=== PATIENT | female | born 1945 | race African-American/Black ===

== ENCOUNTER 2022-01-16 12:25 | Inpatient (IN) | payer OTHER ==
[~2022-01-16] VITALS: Ht 170.2 cm; Wt 64.4 kg
[2022-01-16] MEDS ORDERED: SODIUM CHLORIDE 0.9% 1,000 ML IV ONE (13:15)
[2022-01-16] MEDS ORDERED: KETOROLAC 15MG/ML VIAL IV NR (15:15)
[2022-01-16 16:07] LABS: BASOPHILS % 0.5 % (0.0-2.0); EOSINOPHILS % 0.2 % (0.0-5.0); HEMATOCRIT. 28.5 % (36.0-48.0); HEMOGLOBIN. 9.6 g/dL (12.0-16.0); MEAN CORPUSCULAR HEMOGLOBIN 30.5 pg (28.0-32.0); MEAN CORPUSCULAR VOLUME 90.4 fL (81.0-99.0); MEAN PLATELET VOLUME 11.4 fl (7.4-10.4); MONOCYTES % 6.2 % (2.0-8.0); NEUTROPHILS % 76.1 % (40.0-76.0); PLATELET 246 x1000/uL (130-400); RED BLOOD CELL COUNT 3.16 mill/uL (4.2-5.4); RED CELL DISTRIBUTION WIDTH 17.6 % (11.6-14.6)
[2022-01-16 16:21] LABS: CHLORIDE 100 mEq/L (98-107); CREATINE KINASE 52 IU/L (26-192)
[2022-01-17] MEDS ORDERED: ONDANSETRON HCL 4MG/2ML INJ IV PRN (06:00)
[2022-01-17] MEDS: DEXT 5%/0.45% NACL 1000ML 1,000 ML IV SCH ×2 (06:00→19:20)
[2022-01-17] MEDS ORDERED: MAGNESIUM/ALUMINUM HYDROXIDE/SIMETHICONE 30ML UDC PO PRN (06:00)
[2022-01-17] MEDS ORDERED: GUAIFENESIN 200MG/10ML SUGAR FREE UDC PO PRN (06:00)
[2022-01-17] MEDS ORDERED: DOCUSATE SODIUM 100MG CAPSULE PO PRN (06:00)
[2022-01-17 09:52] VITALS: BP 115/62
[2022-01-17] MEDS: AMLODIPINE 10MG TABLET PO SCH (10:32)
[2022-01-17] MEDS: ENOXAPARIN 30MG/0.3ML SYR SUBCUT SCH (10:33)
[2022-01-17] MEDS ORDERED: MECL-159 PO (12:06)
[2022-01-17] MEDS ORDERED: AMIT100T2 PO (12:24)
[2022-01-17] MEDS ORDERED: ATOR40TA70 PO (12:25)
[2022-01-17] MEDS ORDERED: ALLO100T PO (12:25)
[2022-01-17] MEDS ORDERED: METF-416 PO (12:27)
[2022-01-17] MEDS ORDERED: FURO20TA4 PO (12:28)
[2022-01-17] MEDS ORDERED: AMLO5TAB88 PO (12:29)
[2022-01-17] MEDS: TRAMADOL 50MG TABLET PO PRN (15:55)
[2022-01-17] MEDS ORDERED: METFORMIN HCL 500MG TABLET PO SCH (18:15)
[2022-01-18] VITALS: BP 138/78
[2022-01-18 04:00] VITALS: BP 135/78
[2022-01-18] MEDS ORDERED: BUPIVACAINE HCL/PF 0.5% (5MG/ML) 30ML ONE (06:51)
[2022-01-18] MEDS ORDERED: VANCOMYCIN HCL 1 GM/VIAL ONE (06:51)
[2022-01-18] MEDS ORDERED: LIDOCAINE HCL 1% 20ML VIAL (Pyxis) INJ ONE (06:51)
[2022-01-18] MEDS ORDERED: BUPIVACAINE HCL/PF 0.5% (5MG/ML) 10ML ONE (06:52)
[2022-01-18] MEDS ORDERED: POLYMYXIN B SULFATE 500000 UNITS/VIAL ONE (06:59)
[2022-01-18 07:23] LABS: BASOPHILS % 0.4 % (0.0-2.0); EOSINOPHILS % 2.7 % (0.0-5.0); HEMATOCRIT. 25.2 % (36.0-48.0); HEMOGLOBIN. 8.4 g/dL (12.0-16.0); LYMPHOCYTES % 29.4 % (20.0-50.0); MEAN CORPUSCULAR HEMOGLOBIN 30.5 pg (28.0-32.0); MEAN CORPUSCULAR VOLUME 91.3 fL (81.0-99.0); MEAN PLATELET VOLUME 11.1 fl (7.4-10.4); MONOCYTES % 8.8 % (2.0-8.0); NEUTROPHILS % 58.7 % (40.0-76.0); PLATELET 206 x1000/uL (130-400); RED BLOOD CELL COUNT 2.76 mill/uL (4.2-5.4)
[2022-01-18] MEDS ORDERED: SUCCINYLCHOLINE CHLORIDE 200MG/10ML IV ONE (07:32)
[2022-01-18] MEDS ORDERED: ROCURONIUM BROMIDE 10MG/ML VIAL 5ML IV ONE (07:32)
[2022-01-18] MEDS ORDERED: ETOMIDATE 2MG/ML 10ML VIAL IV ONE (07:32)
[2022-01-18] MEDS ORDERED: MIDAZOLAM HCL 2 MG/2 ML VIAL ONE ×2 (07:33→07:34)
[2022-01-18] MEDS ORDERED: FENTANYL CITRATE/PF 50MCG/ML 2ML VIAL ONE (07:33)
[2022-01-18] MEDS ORDERED: LABETALOL 5MG/ML SYR 20 MG/4 ML SYRINGE IV PRN (08:00)
[2022-01-18] MEDS ORDERED: HYDROMORPHONE HCL/PF 2MG/ML CPJ IV PRN (08:00)
[2022-01-18] MEDS ORDERED: MEPERIDINE HCL/PF 25MG/ML CPJ IV PRN (08:00)
[2022-01-18] MEDS ORDERED: ONDANSETRON HCL 4MG/2ML INJ IV PRN (08:00)
[2022-01-18] MEDS ORDERED: NEOSTIGMINE METHYLSULFATE 1MG/ML 10 ML VIAL ONE (08:19)
[2022-01-18] MEDS ORDERED: GLYCOPYRROLATE 0.2 MG/ML 2ML VIAL ONE ×3 (08:20→08:33)
[2022-01-18] MEDS: CEFAZOLIN 1000MG PREMIX 50 ML IV SCH ×2 (08:30→20:04)
[2022-01-18] MEDS: ENOXAPARIN 30MG/0.3ML SYR SUBCUT SCH (09:00)
[2022-01-18] MEDS: AMLODIPINE 10MG TABLET PO SCH (09:00)
[2022-01-18 09:14] LABS: CHLORIDE 103 mEq/L (98-107); HDL CHOLESTEROL 58 mg/dL (40-59); LDL CHOLESTEROL 27 mg/dL (5-100)
[2022-01-18] MEDS ORDERED: POTASSIUM CHLORIDE 20MEQ TABLET SR PO NR (10:30)
[2022-01-18] MEDS: DEXT 5%/0.45% NACL 1000ML 1,000 ML IV SCH ×2 (10:40→22:05)
[2022-01-18 12:00] VITALS: BP 111/68
[2022-01-18] MEDS ORDERED: DEXTROSE 50% WATER 50ML SYRINGE IV PRN (13:30)
[2022-01-18] MEDS: INSULIN LISPRO 100 UNITS/ML SUBCUT SCH ×3 (14:19→20:18)
[2022-01-18 16:00] VITALS: BP 91/61
[2022-01-18] MEDS: TRAMADOL 50MG TABLET PO PRN (16:41)
[2022-01-18] MEDS: BLOOD SUGAR DIAGNOSTIC STRIP TEST SCH ×2 (17:20→20:03)
[2022-01-18] MEDS ORDERED: NALOXONE HCL 0.4MG/ML VIAL IV PRN (18:30)
[2022-01-18 20:00] VITALS: BP 123/75
[2022-01-19] VITALS (11 sets, daily range): BP systolic 96–138; BP diastolic 54–88
[2022-01-19 06:30] LABS: BASOPHILS % 0.4 % (0.0-2.0); EOSINOPHILS % 0.7 % (0.0-5.0); LYMPHOCYTES % 22.8 % (20.0-50.0); MEAN CORPUSCULAR HEMOGLOBIN 30.9 pg (28.0-32.0); MEAN CORPUSCULAR VOLUME 91.4 fL (81.0-99.0); MEAN PLATELET VOLUME 10.9 fl (7.4-10.4); MONOCYTES % 8.2 % (2.0-8.0); NEUTROPHILS % 67.9 % (40.0-76.0); PLATELET 182 x1000/uL (130-400); RED BLOOD CELL COUNT 2.19 mill/uL (4.2-5.4); RED CELL DISTRIBUTION WIDTH 17.8 % (11.6-14.6)
[2022-01-19 06:50] LABS: HEMOGLOBIN. 6.7 g/dL (12.0-16.0)
[2022-01-19] MEDS: TRAMADOL 50MG TABLET PO PRN ×2 (06:58→13:31)
[2022-01-19 07:03] LABS: CHLORIDE 103 mEq/L (98-107)
[2022-01-19] MEDS: BLOOD SUGAR DIAGNOSTIC STRIP TEST SCH ×5 (07:20→21:36)
[2022-01-19] MEDS: ENOXAPARIN 30MG/0.3ML SYR SUBCUT SCH (09:00)
[2022-01-19] MEDS: CEFAZOLIN 1000MG PREMIX 50 ML IV SCH ×2 (09:14→23:37)
[2022-01-19] MEDS: AMLODIPINE 10MG TABLET PO SCH (09:14)
[2022-01-19] MEDS: INSULIN LISPRO 100 UNITS/ML SUBCUT SCH ×3 (09:25→13:26)
[2022-01-19] MEDS: DEXT 5%/0.45% NACL 1000ML 1,000 ML IV SCH ×2 (11:20→23:37)
[2022-01-19] MEDS ORDERED: MECLIZINE 25MG TABLET PO PRN (14:45)
[2022-01-19] MEDS ORDERED: MAGNESIUM 2 G PREMIX 50 ML IV NR (17:00)
[2022-01-19] MEDS: METFORMIN HCL 500MG TABLET PO SCH (17:50)
[2022-01-19] MEDS: AMITRIPTYLINE 25MG TABLET PO SCH (21:36)
[2022-01-19] MEDS: ATORVASTATIN CALCIUM 40MG TABLET PO SCH (21:36)
[2022-01-20 02:13] VITALS: BP 108/75
[2022-01-20 02:28] VITALS: BP 110/68
[2022-01-20 03:28] VITALS: BP 112/61
[2022-01-20 04:00] VITALS: BP 115/62
[2022-01-20 04:10] VITALS: BP 115/62
[2022-01-20] MEDS: BLOOD SUGAR DIAGNOSTIC STRIP TEST SCH ×4 (06:33→20:37)
[2022-01-20] MEDS: ALLOPURINOL 100 MG TABLET PO SCH (11:24)
[2022-01-20] MEDS: CEFAZOLIN 1000MG PREMIX 50 ML IV SCH (11:24)
[2022-01-20] MEDS: METFORMIN HCL 500MG TABLET PO SCH ×2 (11:24→17:39)
[2022-01-20] MEDS: AMLODIPINE 5MG TABLET PO SCH (11:25)
[2022-01-20] MEDS: FUROSEMIDE 20MG TABLET PO SCH (11:25)
[2022-01-20 13:16] LABS: BASOPHILS % 0.2 % (0.0-2.0); EOSINOPHILS % 1.1 % (0.0-5.0); HEMATOCRIT. 26.1 % (36.0-48.0); HEMOGLOBIN. 8.9 g/dL (12.0-16.0); LYMPHOCYTES % 12.3 % (20.0-50.0); MEAN CORPUSCULAR HEMOGLOBIN 30.3 pg (28.0-32.0); MEAN CORPUSCULAR VOLUME 89.1 fL (81.0-99.0); MEAN PLATELET VOLUME 11.3 fl (7.4-10.4); MONOCYTES % 5.7 % (2.0-8.0); NEUTROPHILS % 80.7 % (40.0-76.0); PLATELET 189 x1000/uL (130-400); RED BLOOD CELL COUNT 2.93 mill/uL (4.2-5.4); RED CELL DISTRIBUTION WIDTH 16.1 % (11.6-14.6)
[2022-01-20] MEDS: TRAMADOL 50MG TABLET PO PRN (15:48)
[2022-01-20 16:06] LABS: CHLORIDE 100 mEq/L (98-107)
[2022-01-20] MEDS: DEXT 5%/0.45% NACL 1000ML 1,000 ML IV SCH (17:39)
[2022-01-20 20:00] VITALS: BP 122/67
[2022-01-20] MEDS: AMITRIPTYLINE 25MG TABLET PO SCH (20:39)
[2022-01-20] MEDS: ATORVASTATIN CALCIUM 40MG TABLET PO SCH (20:39)
[2022-01-20] MEDS ORDERED: DEXTROSE 50% WATER 50ML SYRINGE IV PRN (23:30)
[2022-01-21] VITALS: BP 125/62
[2022-01-21] MEDS: DEXT 5%/0.45% NACL 1000ML 1,000 ML IV SCH (03:20)
[2022-01-21] MEDS: BLOOD SUGAR DIAGNOSTIC STRIP TEST SCH ×5 (07:20→23:47)
[2022-01-21] MEDS: INSULIN LISPRO 100 UNITS/ML SUBCUT SCH ×4 (07:50→20:34)
[2022-01-21] MEDS: ALLOPURINOL 100 MG TABLET PO SCH (08:35)
[2022-01-21] MEDS: METFORMIN HCL 500MG TABLET PO SCH ×2 (08:35→18:31)
[2022-01-21] MEDS: FUROSEMIDE 20MG TABLET PO SCH (08:35)
[2022-01-21] MEDS: AMLODIPINE 5MG TABLET PO SCH (08:36)
[2022-01-21] MEDS ORDERED: POTASSIUM CHLORIDE 20MEQ TABLET SR PO NR (11:00)
[2022-01-21] MEDS: TRAMADOL 50MG TABLET PO PRN (11:48)
[2022-01-21 12:14] VITALS: BP 121/65
[2022-01-21 16:03] VITALS: BP 129/71
[2022-01-21 20:00] VITALS: BP 122/59
[2022-01-21] MEDS: AMITRIPTYLINE 25MG TABLET PO SCH (20:34)
[2022-01-21] MEDS: ATORVASTATIN CALCIUM 40MG TABLET PO SCH (20:34)
[2022-01-22] VITALS: BP 120/63
[2022-01-22 04:00] VITALS: BP 123/71
[2022-01-22] MEDS: INSULIN LISPRO 100 UNITS/ML SUBCUT SCH ×4 (07:50→19:59)
[2022-01-22 08:00] VITALS: BP 126/64
[2022-01-22] MEDS: ALLOPURINOL 100 MG TABLET PO SCH (09:51)
[2022-01-22] MEDS: FUROSEMIDE 20MG TABLET PO SCH (09:51)
[2022-01-22] MEDS: AMLODIPINE 5MG TABLET PO SCH (09:51)
[2022-01-22] MEDS: METFORMIN HCL 500MG TABLET PO SCH ×2 (09:51→17:56)
[2022-01-22 12:00] VITALS: BP 126/69
[2022-01-22] MEDS: BLOOD SUGAR DIAGNOSTIC STRIP TEST SCH ×3 (13:09→19:59)
[2022-01-22 16:00] VITALS: BP 124/66
[2022-01-22] MEDS: AMITRIPTYLINE 25MG TABLET PO SCH (19:59)
[2022-01-22] MEDS: ATORVASTATIN CALCIUM 40MG TABLET PO SCH (19:59)
[2022-01-22 20:00] VITALS: BP 134/74
[2022-01-23] VITALS: BP 117/74
[2022-01-23] MEDS: BLOOD SUGAR DIAGNOSTIC STRIP TEST SCH ×4 (03:42→21:00)
[2022-01-23 04:00] VITALS: BP 142/80
[2022-01-23 07:10] LABS: HEMATOCRIT 25.2 % (36.0-48.0); HEMOGLOBIN 8.5 g/dL (12.0-16.0); MEAN CORPUSCULAR HEMOGLOBIN 30.2 pg (28.0-32.0); MEAN CORPUSCULAR VOLUME 89.3 fL (81.0-99.0); PLATELET 232 x1000/uL (130-400); RED BLOOD CELL COUNT 2.83 mill/uL (4.2-5.4); RED CELL DISTRIBUTION WIDTH 16.4 % (11.6-14.6)
[2022-01-23 08:00] VITALS: BP 141/81
[2022-01-23] MEDS: ALLOPURINOL 100 MG TABLET PO SCH (08:37)
[2022-01-23] MEDS: AMLODIPINE 5MG TABLET PO SCH (08:37)
[2022-01-23] MEDS: FUROSEMIDE 20MG TABLET PO SCH (08:37)
[2022-01-23] MEDS: METFORMIN HCL 500MG TABLET PO SCH ×2 (08:37→18:28)
[2022-01-23] MEDS: INSULIN LISPRO 100 UNITS/ML SUBCUT SCH ×4 (08:54→22:58)
[2022-01-23 12:00] VITALS: BP 137/61
[2022-01-23] MEDS: POTASSIUM CHLORIDE 20MEQ TABLET SR PO SCH (14:15)
[2022-01-23 16:00] VITALS: BP 121/42
[2022-01-23 20:00] VITALS: BP 127/70
[2022-01-23] MEDS: AMITRIPTYLINE 25MG TABLET PO SCH (22:55)
[2022-01-23] MEDS: ATORVASTATIN CALCIUM 40MG TABLET PO SCH (22:56)
[2022-01-24] VITALS: BP 119/68
[2022-01-24 04:00] VITALS: BP 127/70
[2022-01-24] MEDS: INSULIN LISPRO 100 UNITS/ML SUBCUT SCH ×4 (07:50→21:00)
[2022-01-24] MEDS: BLOOD SUGAR DIAGNOSTIC STRIP TEST SCH ×4 (07:51→21:08)
[2022-01-24 08:00] VITALS: BP 148/76
[2022-01-24] MEDS: AMLODIPINE 5MG TABLET PO SCH (08:45)
[2022-01-24] MEDS: METFORMIN HCL 500MG TABLET PO SCH ×2 (08:45→18:24)
[2022-01-24] MEDS: POTASSIUM CHLORIDE 20MEQ TABLET SR PO SCH (08:45)
[2022-01-24] MEDS: ALLOPURINOL 100 MG TABLET PO SCH (08:45)
[2022-01-24] MEDS: FUROSEMIDE 20MG TABLET PO SCH (08:46)
[2022-01-24] MEDS: ACETAMINOPHEN 325MG TABLET PO PRN (11:21)
[2022-01-24 12:00] VITALS: BP 132/69
[2022-01-24] MEDS: TRAMADOL 50MG TABLET PO PRN (14:38)
[2022-01-24 16:00] VITALS: BP 121/71
[2022-01-24 20:00] VITALS: BP 133/75
[2022-01-24] MEDS: AMITRIPTYLINE 25MG TABLET PO SCH (21:22)
[2022-01-24] MEDS: ATORVASTATIN CALCIUM 40MG TABLET PO SCH (21:22)
[2022-01-25] VITALS: BP 132/72
[2022-01-25 04:00] VITALS: BP 143/75
[2022-01-25] MEDS: BLOOD SUGAR DIAGNOSTIC STRIP TEST SCH ×4 (06:22→20:47)
[2022-01-25] MEDS: INSULIN LISPRO 100 UNITS/ML SUBCUT SCH ×4 (07:50→20:48)
[2022-01-25 08:00] VITALS: BP 146/81
[2022-01-25] MEDS: AMLODIPINE 5MG TABLET PO SCH ×2 (10:05→10:06)
[2022-01-25] MEDS: POTASSIUM CHLORIDE 20MEQ TABLET SR PO SCH (10:05)
[2022-01-25] MEDS: ALLOPURINOL 100 MG TABLET PO SCH (10:05)
[2022-01-25] MEDS: FUROSEMIDE 20MG TABLET PO SCH (10:06)
[2022-01-25] MEDS: METFORMIN HCL 500MG TABLET PO SCH ×2 (10:06→19:42)
[2022-01-25 12:00] VITALS: BP 144/80
[2022-01-25 16:00] VITALS: BP 153/80
[2022-01-25 20:00] VITALS: BP 149/83
[2022-01-25] MEDS: AMITRIPTYLINE 25MG TABLET PO SCH (20:42)
[2022-01-25] MEDS: ATORVASTATIN CALCIUM 40MG TABLET PO SCH (20:42)
[2022-01-26] VITALS: BP 137/79
[2022-01-26 04:00] VITALS: BP 113/77
[2022-01-26] MEDS: BLOOD SUGAR DIAGNOSTIC STRIP TEST SCH ×4 (07:20→20:26)
[2022-01-26] MEDS: INSULIN LISPRO 100 UNITS/ML SUBCUT SCH ×4 (07:50→20:26)
[2022-01-26 08:00] VITALS: BP 128/80
[2022-01-26] MEDS: FUROSEMIDE 20MG TABLET PO SCH (09:09)
[2022-01-26] MEDS: METFORMIN HCL 500MG TABLET PO SCH ×2 (09:09→17:20)
[2022-01-26] MEDS: ALLOPURINOL 100 MG TABLET PO SCH (09:09)
[2022-01-26] MEDS: POTASSIUM CHLORIDE 20MEQ TABLET SR PO SCH (09:09)
[2022-01-26] MEDS: TRAMADOL 50MG TABLET PO PRN ×2 (11:15→20:25)
[2022-01-26 12:00] VITALS: BP 134/75
[2022-01-26 16:00] VITALS: BP 117/63
[2022-01-26 20:16] VITALS: BP 111/63
[2022-01-26] MEDS: ATORVASTATIN CALCIUM 40MG TABLET PO SCH (20:24)
[2022-01-26] MEDS: AMITRIPTYLINE 25MG TABLET PO SCH (20:24)
[2022-01-27] MEDS: BLOOD SUGAR DIAGNOSTIC STRIP TEST SCH ×4 (06:37→20:33)
[2022-01-27] MEDS: INSULIN LISPRO 100 UNITS/ML SUBCUT SCH ×4 (07:20→20:33)
[2022-01-27 08:00] VITALS: BP 123/78
[2022-01-27] MEDS: METFORMIN HCL 500MG TABLET PO SCH ×2 (09:13→17:17)
[2022-01-27] MEDS: AMLODIPINE 5MG TABLET PO SCH (09:13)
[2022-01-27] MEDS: FUROSEMIDE 20MG TABLET PO SCH (09:13)
[2022-01-27] MEDS: ALLOPURINOL 100 MG TABLET PO SCH (09:13)
[2022-01-27] MEDS: POTASSIUM CHLORIDE 20MEQ TABLET SR PO SCH (09:13)
[2022-01-27 12:00] VITALS: BP 124/71
[2022-01-27] MEDS: TRAMADOL 50MG TABLET PO PRN (12:20)
[2022-01-27 16:00] VITALS: BP 126/64
[2022-01-27 20:00] VITALS: BP 142/80
[2022-01-27] MEDS: ATORVASTATIN CALCIUM 40MG TABLET PO SCH (20:33)
[2022-01-27] MEDS: AMITRIPTYLINE 25MG TABLET PO SCH (20:34)
[2022-01-28] VITALS: BP 143/77
[2022-01-28 04:00] VITALS: BP 141/81
[2022-01-28] MEDS: BLOOD SUGAR DIAGNOSTIC STRIP TEST SCH ×4 (06:32→20:35)
[2022-01-28] MEDS: INSULIN LISPRO 100 UNITS/ML SUBCUT SCH ×4 (07:00→20:35)
[2022-01-28 08:00] VITALS: BP 130/82
[2022-01-28] MEDS: FUROSEMIDE 20MG TABLET PO SCH (10:09)
[2022-01-28] MEDS: POTASSIUM CHLORIDE 20MEQ TABLET SR PO SCH (10:09)
[2022-01-28] MEDS: ALLOPURINOL 100 MG TABLET PO SCH (10:09)
[2022-01-28] MEDS: METFORMIN HCL 500MG TABLET PO SCH ×2 (10:09→17:54)
[2022-01-28] MEDS: AMLODIPINE 5MG TABLET PO SCH (10:09)
[2022-01-28 12:00] VITALS: BP 143/80
[2022-01-28] MEDS: TRAMADOL 50MG TABLET PO PRN (14:10)
[2022-01-28 16:00] VITALS: BP 131/70
[2022-01-28 20:00] VITALS: BP 165/82
[2022-01-28] MEDS: ATORVASTATIN CALCIUM 40MG TABLET PO SCH (20:31)
[2022-01-28] MEDS: AMITRIPTYLINE 25MG TABLET PO SCH (20:31)
[2022-01-29] VITALS: BP 145/70
[2022-01-29 04:00] VITALS: BP 158/86
[2022-01-29] MEDS: BLOOD SUGAR DIAGNOSTIC STRIP TEST SCH ×3 (07:36→20:42)
[2022-01-29] MEDS: INSULIN LISPRO 100 UNITS/ML SUBCUT SCH ×4 (07:36→20:42)
[2022-01-29 08:00] VITALS: BP 140/77
[2022-01-29] MEDS: METFORMIN HCL 500MG TABLET PO SCH (08:43)
[2022-01-29] MEDS: ALLOPURINOL 100 MG TABLET PO SCH (08:44)
[2022-01-29] MEDS: FUROSEMIDE 20MG TABLET PO SCH (08:44)
[2022-01-29] MEDS: AMLODIPINE 5MG TABLET PO SCH (08:50)
[2022-01-29] MEDS: POTASSIUM CHLORIDE 20MEQ TABLET SR PO SCH (08:51)
[2022-01-29 12:00] VITALS: BP 138/72
[2022-01-29 16:00] VITALS: BP 137/72
[2022-01-29 20:00] VITALS: BP 121/60
[2022-01-29] MEDS: AMITRIPTYLINE 25MG TABLET PO SCH (20:34)
[2022-01-29] MEDS: ATORVASTATIN CALCIUM 40MG TABLET PO SCH (20:34)
[2022-01-30] VITALS: BP 166/73
[2022-01-30 04:00] VITALS: BP 164/74
[2022-01-30 06:43] LABS: BASOPHILS % 0.4 % (0.0-2.0); EOSINOPHILS % 1.3 % (0.0-5.0); HEMATOCRIT. 24.5 % (36.0-48.0); HEMOGLOBIN. 8.4 g/dL (12.0-16.0); LYMPHOCYTES % 13.9 % (20.0-50.0); MEAN CORPUSCULAR HEMOGLOBIN 30.8 pg (28.0-32.0); MEAN CORPUSCULAR VOLUME 89.7 fL (81.0-99.0); MEAN PLATELET VOLUME 9.6 fl (7.4-10.4); MONOCYTES % 5.8 % (2.0-8.0); NEUTROPHILS % 78.6 % (40.0-76.0); PLATELET 370 x1000/uL (130-400); RED BLOOD CELL COUNT 2.73 mill/uL (4.2-5.4); RED CELL DISTRIBUTION WIDTH 16.7 % (11.6-14.6)
[2022-01-30] MEDS: BLOOD SUGAR DIAGNOSTIC STRIP TEST SCH ×2 (07:20→13:02)
[2022-01-30] MEDS: INSULIN LISPRO 100 UNITS/ML SUBCUT SCH ×2 (07:50→12:50)
[2022-01-30 08:00] VITALS: BP 150/82
[2022-01-30] MEDS: POTASSIUM CHLORIDE 20MEQ TABLET SR PO SCH (08:45)
[2022-01-30] MEDS: FUROSEMIDE 20MG TABLET PO SCH (08:45)
[2022-01-30] MEDS: METFORMIN HCL 500MG TABLET PO SCH ×2 (08:45→08:47)
[2022-01-30] MEDS: AMLODIPINE 5MG TABLET PO SCH (08:46)
[2022-01-30] MEDS: ALLOPURINOL 100 MG TABLET PO SCH (08:48)
[2022-01-30] MEDS: ACETAMINOPHEN 325MG TABLET PO PRN (10:24)
[2022-01-30 12:00] VITALS: BP 148/85
[2022-01-30 16:00] VITALS: BP 133/77
[2022-01-30 16:55] VITALS: BP 150/82
== END 2022-01-30 17:56 | DRG 480 ==
LOC: ER 12:25 → CANBEDREQ 18:44 → 6EST 21:47
PROVIDERS: ADMIT Hospitalist; ATTEND Hospitalist
PROC: 0QS606Z Reposition Right Upper Femur with Intramedullary Internal Fixation Device, Open Approach (ICD-10-PCS; principal; 2022-01-18)
PROC: 30233N1 Transfusion of Nonautologous Red Blood Cells into Peripheral Vein, Percutaneous Approach (ICD-10-PCS; 2022-01-19)
DX: S72.141A Displaced intertrochanteric fracture of right femur, initial encounter for closed fracture (principal); N17.0 Acute kidney failure with tubular necrosis; D62 Acute posthemorrhagic anemia; E11.9 Type 2 diabetes mellitus without complications; F02.80 Dementia in other diseases classified elsewhere, unspecified severity, without behavioral disturbance, psychotic disturbance, mood disturbance, and anxiety; Z20.822 Contact with and (suspected) exposure to COVID-19; I10 Essential (primary) hypertension; G30.9 Alzheimer's disease, unspecified; G89.29 Other chronic pain; I95.9 Hypotension, unspecified; Z79.84 Long term (current) use of oral hypoglycemic drugs; Z79.899 Other long term (current) drug therapy; W18.30XA Fall on same level, unspecified, initial encounter; Y93.89 Activity, other specified; Y92.009 Unspecified place in unspecified non-institutional (private) residence as the place of occurrence of the external cause; Y99.8 Other external cause status
CPT/HCPCS: 36415; 71045; 73502; 76000; 80048; 80053; 80061; 82040; 82550; 82962; 83036; 83735; 84134; 84484; 85025; 85027; 86850; 86900; 86920; 86945; 87426; 93005; 93970; 97110; 97116; 97162; 97166; 97530; 97535; 99285; A6261; C1893; J0330; J0690; J1650; J1815; J1885; J2250; J2710; J3010; J3370; J3475; J3490; J7030; P9016; C1713